=== PATIENT | male | born 1985 | race Caucasian/White ===

== ENCOUNTER 2017-04-20 01:03 | Emergency (ER) | payer OTHER ==
--- NOTE | 2017-04-20 02:22 | ER ---
ADMIT: 04/20/2017 RM/LOC: ER [facility] MR#: [id number] [address] [id number] ASHLIE NOE , Emergency Room Report SEX: M AGE: 31 : 1985 DATE: 04/20/2017 CHIEF COMPLAINT: Near amputation. HISTORY OF PRESENT ILLNESS: The patient is a 31-year-old, employee of [employer], caught his left little finger and pressed while wearing gloves, sustained near amputation of the left little finger at the DIP joint. Transported by co-worker. PAST MEDICAL HISTORY: OPERATIONS: None. ILLNESSES: None. ALLERGIES: NONE. MEDICATIONS: None. REVIEW OF SYSTEMS: Last tetanus within 10 years. SOCIAL HISTORY: Nonsmoker, nondrinker. No illicit drugs. FAMILY HISTORY: Negative per chart review. PHYSICAL EXAMINATION: VITAL SIGNS: Temperature 99, pulse 92, respirations 18, BP 146/101, SaO2 of 98%. GENERAL: Nontoxic, non-diaphoretic without jaundice or icterus. HEENT: Normocephalic. No evidence of epistaxis, rhinorrhea, or otorrhea. NECK: Supple. CHEST: Clear. Breath sounds equal. HEART: Regular rate and rhythm without murmur, gallop, or edema. ABDOMEN: Soft, nontender, nondistended without mass or megaly. Bowel sounds hypoactive. EXTREMITIES: Near amputation of left little finger, obvious deformity, distal aspect of the proximal phalanx, still has sensations, still able to flex, but no extension. X-ray confirms near amputation. EMERGENCY DEPARTMENT COURSE: The patient was treated with IV fluids, Zofran 8 mg IV push, Dilaudid 1 mg IV push q.20 minutes p.r.n., cefazolin 2 g IV piggyback. Notified Dr. Nazario, who evaluated in ED, completed amputation. Ezra Holly MD/ modl JOB #: [id number] CC: Ezra Holly MD, Attending Physician Akilah Nazario MD
--- NOTE | 2017-04-20 14:46 | CO ---
ADMIT: 04/20/2017 RM/LOC: [facility] MR#: [id number] [address] [address] [place] [address] Consultation SEX: M AGE: 31 : 1985 DATE OF CONSULTATION: 04/20/2017 ATTENDING PHYSICIAN: Ezra Holly CONSULTING PHYSICIAN: Akilah Nazario MD CHIEF COMPLAINT: Partial amputation of the left small finger at the proximal phalangeal level. 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 He has a large soft tissue injury and presents for evaluation and treatment. On examination, he has no vascularity to the tip of his finger. Soft tissue bridge is predominantly flexor tendon on the volar side of the finger. Radiographs show open fracture at the level of proximal phalanx near at the proximal interphalangeal joint. IMPRESSION: Near complete amputation of the left small finger at the proximal phalangeal level. RECOMMENDATIONS: After informed consent and sterile prep, I anesthetized his finger with 1% plain lidocaine. After irrigation with Betadine and sterile water, I resected what remained of the soft tissue bridge holding his finger on. There was one small vessel that I used a hand-held cautery to cauterize and I then because of the obliquity of the amputation needed to remove just a small portion of the proximal phalanx with a rongeur. After smoothing the bone with a rongeur after thorough irrigation of the wound closed this by bringing the dorsal flap down to the volar side of the wound giving me a reasonable closure and soft tissue coverage of the proximal phalanx. The wound was then dressed with Xeroform gauze, 4x4s, and Linda, and he was discharged from the ER in stable condition. DISCHARGE INSTRUCTIONS: 1. Keep the wound clean and dry. 2. Return to our office on 04/21/2017 for dressing change. 3. Prescriptions include Keflex 500 mg, #30, one p.o. t.i.d. and Lortab 7.5/325, 1 to 2 every 4 hours p.r.n. pain. Akilah Nazario MD/ jose m JOB #: [id number] CC: Ezra Holly, Attending Physician Akilah Nazario, Family Physician
== END 2017-04-20 03:06 | disposition home or self-care (01) ==
LOC: ER 01:03
PROC: 0X6W0Z3 Detachment at Left Little Finger, Low, Open Approach (ICD-10-PCS; principal; 2017-04-20)
DX: S62.616A Displaced fracture of proximal phalanx of right little finger, initial encounter for closed fracture (principal); I10 Essential (primary) hypertension; Z23 Encounter for immunization; W23.0XXA Caught, crushed, jammed, or pinched between moving objects, initial encounter; Y92.69 Other specified industrial and construction area as the place of occurrence of the external cause